=== PATIENT | male | born 1995 ===

== ENCOUNTER 2018-10-12 15:02 | Emergency (ER) | payer MEDICAID ==
[2018-10-12] MEDS: LIDOCAINE 2%/EPI MPF (SDV) 20 ML VIAL INJ (16:41)
[2018-10-12] MEDS: DIPHTH/TET/ACEL PERTUSS (ADULT) 0.5 ML VIAL IM* (17:05)
== END 2018-10-12 17:10 | disposition home or self-care (01) ==
LOC: FTE 15:02
DX: S51.811A Laceration without foreign body of right forearm, initial encounter (principal); W26.8XXA Contact with other sharp object(s), not elsewhere classified, initial encounter; Y92.9 Unspecified place or not applicable; Z23 Encounter for immunization
CPT/HCPCS: 12002; 90471; 90715; 99283-25